=== PATIENT | female | born 2000 | race Caucasian/White ===

== ENCOUNTER 2021-01-01 07:41 | Emergency (ER) | payer MEDICAID, OTHER ==
[~2021-01-01] VITALS: Ht 147.3 cm; Wt 86.3 kg
--- NOTE | 2021-01-01 08:08 | PHYS DOC ---
Past Medical History Past Medical History: No Pertinent History Past Surgical History: Smoking Status: Never Smoker Alcohol Use: None Drug Use: None General Adult EDM: Chief Complaint: ABDOMINAL PAIN IN HPI: HPI: Patient is a 20 year old female who presented to ER due to epigastric abdominal pain for 1 week. Patient denies any chest pain, no nausea vomiting. Patient says she is 2 months , she is scheduled to see her OB doctor next week. Patient denies any lower abdominal pain, denies any pelvic pain, no vaginal bleeding or discharge. Patient has been 4 times, had TWO MISCARRIES and one live child. Her blood type is O+. Patient said whenever she tries to eat she feels sick in her stomach. Patient denies any cough or fever Review of Systems: Review of Systems: Constitutional: Denies fever or chills. [] Eyes: Denies change in visual acuity. [] HENT: Denies nasal congestion or sore throat. [] Respiratory: Denies cough or shortness of breath. [] Cardiovascular: Denies chest pain or edema. [] GI: Positive for abdominal pain, no nausea vomiting, no diarrhea. : Denies dysuria. [] Musculoskeletal: Denies back pain or joint pain. [] Integument: Denies rash. [] Neurologic: Denies headache, focal weakness or sensory changes. [] Endocrine: Denies polyuria or polydipsia. [] Lymphatic: Denies swollen glands. [] Psychiatric: Denies depression or anxiety. [] Heart Score: Risk Factors: Risk Factors: DM, Current or recent (<one month) smoker, HTN, HLP, family history of CAD, obesity. Risk Scores: Score 0 - 3: 2.5% MACE over next 6 weeks - Discharge Home Score 4 - 6: 20.3% MACE over next 6 weeks - Admit for Clinical Observation Score 7 - 10: 72.7% MACE over next 6 weeks - Early Invasive Strategies Current Medications: Current Medications Medications (Trade) Dose Ordered Sig/David Start Time Stop Time Status Last Admin Dose Admin Famotidine (Pepcid Vial) 20 mg 1X ONCE 01/01/21 08:15 01/01/21 08:16 UNV Metoclopramide HCl (Reglan Vial) 10 mg 1X ONCE 01/01/21 08:15 01/01/21 08:16 UNV Sodium Chloride 1,000 ml @ 1,000 mls/hr 1X ONCE 01/01/21 08:15 01/01/21 09:14 UNV Allergies: Allergies: Allergies Coded Allergies Type Severity Reaction Last Updated Verified No Known Drug Allergies 08/07/15 No Physical Exam: PE: Constitutional: Well developed, well nourished, no acute distress, non-toxic appearance. [] HENT: Normocephalic, atraumatic, bilateral external ears normal, oropharynx moist, no oral exudates, nose normal. [] Eyes: PERRLA, EOMI, conjunctiva normal, no discharge. [] Neck: Normal range of motion, no tenderness, supple, no stridor. [] Cardiovascular:Heart rate regular rhythm, no murmur [] Lungs & Thorax: Bilateral breath sounds clear to auscultation [] Abdomen: Bowel sounds normal, soft, epigastric tender to palpate, no masses, no pulsatile masses. [] Skin: Warm, dry, no erythema, no rash. [] Back: No tenderness, no CVA tenderness. [] Extremities: No tenderness, no cyanosis, no clubbing, ROM intact, no edema. [] Neurologic: Alert and oriented X 3, normal motor function, normal sensory function, no focal deficits noted. [] Psychologic: Affect normal, judgement normal, mood normal. [] Current Patient Data: Labs: Laboratory Tests Test 01/01/21 07:55 01/01/21 08:06 01/01/21 08:40 Urine Collection Type Unknown Urine Color Kylie Urine Clarity Clear Urine pH 6.0 Urine Specific [place] >=1.030 Urine Protein Negative mg/dL Urine Glucose (UA) Negative mg/dL Urine Ketones (Stick) Trace mg/dL Urine Blood Negative Urine Nitrite Negative Urine Bilirubin Small Urine Urobilinogen Dipstick 1.0 mg/dL Urine Leukocyte Esterase Trace Urine RBC Occ /HPF Urine WBC 5-10 /HPF Urine Squamous Epithelial Cells Many /LPF Urine Bacteria Moderate /HPF Urine Mucus Marked /LPF Bedside Urine HCG, Qualitative Hcg positive White Blood Count 11.0 x10^3/uL Red Blood Count 4.80 x10^6/uL Hemoglobin 13.2 g/dL Hematocrit 40.2 % Mean Corpuscular Volume 84 fL Mean Corpuscular Hemoglobin 28 pg Mean Corpuscular Hemoglobin Concent 33 g/dL Red Cell Distribution Width 14.0 % Platelet Count 246 x10^3/uL Neutrophils (%) (Auto) 66 % Lymphocytes (%) (Auto) 22 % Monocytes (%) (Auto) 9 % Eosinophils (%) (Auto) 2 % Basophils (%) (Auto) 1 % Neutrophils # (Auto) 7.3 x10^3/uL Lymphocytes # (Auto) 2.4 x10^3/uL Monocytes # (Auto) 1.0 x10^3/uL Eosinophils # (Auto) 0.3 x10^3/uL Basophils # (Auto) 0.1 x10^3/uL Sodium Level 137 mmol/L Potassium Level 3.5 mmol/L Chloride Level 101 mmol/L Carbon Dioxide Level 25 mmol/L Anion Gap 11 Blood Urea Nitrogen 9 mg/dL Creatinine 0.8 mg/dL Estimated GFR (Cockcroft-Gault) 89.7 BUN/Creatinine Ratio 11 Glucose Level 103 mg/dL Calcium Level 9.6 mg/dL Magnesium Level 1.9 mg/dL Total Bilirubin 0.6 mg/dL Aspartate Amino Transf (AST/SGOT) 20 U/L Alanine Aminotransferase (ALT/SGPT) 37 U/L Alkaline Phosphatase 74 U/L Total Protein 7.3 g/dL Albumin 3.2 g/dL Albumin/Globulin Ratio 0.8 Lipase 91 U/L Current Medications Medications (Trade) Dose Ordered Sig/David Route PRN Reason Start Time Stop Time Status Last Admin Dose Admin Sodium Chloride 1,000 ml @ 1,000 mls/hr 1X ONCE IV 01/01/21 08:15 01/01/21 09:14 DC 01/01/21 08:15 Metoclopramide HCl (Reglan Vial) 10 mg 1X ONCE IVP 01/01/21 08:15 01/01/21 08:16 DC 01/01/21 08:43 Famotidine (Pepcid Vial) 20 mg 1X ONCE IVP 01/01/21 08:15 01/01/21 08:16 DC 01/01/21 08:42 Vital Signs: Vital Signs Date Time Temp Pulse Resp B/P (MAP) Pulse Ox O2 Delivery O2 Flow Rate FiO2 01/01/21 07:54 97.3 76 16 128/66 (86) 99 Room Air 97.3 EKG: EKG: [] Radiology/Procedures: Radiology/Procedures: [][facility] [address] [place] [address] IMAGING REPORT Signed PATIENT: CINDY BARRAGAN ACCOUNT: [id number] : 2000 LOCATION: ER AGE: 20 SEX: F EXAM STATUS: REG ER ORD. PHYSICIAN: ZAFAR LEW DO REASON: RUQ abdominal pain, epigastric pain PROCEDURE: ABDOMEN LTD Ultrasound the abdomen limited. HISTORY: Right upper quadrant pain, epigastric pain Ultrasound was used to evaluate the right upper quadrant of the abdomen. Mid body the pancreas was normal, portions of the head and tail of the pancreas were obscured. Vena cava at the liver was unremarkable. Proximal abdominal aorta was not enlarged. Liver is within normal limits in size and appearance although incompletely evaluated. There is flow the portal vein with color imaging. Gallbladder was normal without gallstones or gallbladder wall thickening. Common duct was normal measuring 3 mm. Right kidney is 10.4 cm in length without a mass or hydronephrosis. IMPRESSION: 1. Liver within normal limits in appearance. 2. No gallstones noted. Electronically signed by: Shane Duff MD (01/01/2021 9:25 AM) [id number] DICTATED and SIGNED BY: SHANE DUFF MD DATE: 01/01/21 [id number] 0 Course & Med Decision Making: Course & Med Decision Making Pertinent Labs and Imaging studies reviewed. (See chart for details) [] Dragon Disclaimer: Dragon Disclaimer: This electronic medical record was generated, in whole or in part, using a voice recognition dictation system. Departure Departure Impression: Primary Impression: Gastritis Additional Impression: Abdominal pain during in first trimester Disposition: 01 DC HOME SELF CARE/HOMELESS Condition: IMPROVED Referrals: NO PCP (PCP) MADISON SHIELDS Jr, MD next week Patient Instructions: Abdominal Pain During , Gastritis, Adult Scripts Metoclopramide Hcl (REGLAN) 10 Mg Tablet 1 TAB PO QID PRN for NAUSEA for 15 Days, #60 TAB 0 Refills before food and bedtime Prov: ZAFAR LEW DO 01/01/21 Famotidine (PEPCID) 20 Mg Tablet 20 MG PO HS for 30 Days, #30 TAB Prov: ZAFAR LEW DO 01/01/21 ZAFAR LEW DO Jan 01, 2021 08:08
[2021-01-01 08:12] LABS: BILIRUBIN,URINE SMALL (NEG); CLARITY,URINE CLEAR; COLOR,URINE AMBER; NITRITE,URINE NEGATIVE (NEG); PROTEIN,URINE NEGATIVE (NEG-TRACE)
[2021-01-01] MEDS ORDERED: METOCLOPRAMIDE HCL 10 MG/2 ML VIAL. IVP ONE (08:15)
[2021-01-01] MEDS ORDERED: IV NORMAL SALINE 1000ML BAG 1,000 ML IV ONE (08:15)
[2021-01-01] MEDS ORDERED: FAMOTIDINE 20 MG/2 ML VIAL IVP ONE (08:15)
[2021-01-01 08:59] LABS: BASO # 0.1 x10^3/uL (0.0-0.2); BASO % 1 % (0-3); EOS # 0.3 x10^3/uL (0.0-0.7); EOS % 2 % (0-3); HEMATOCRIT 40.2 % (36.0-47.0); HEMOGLOBIN 13.2 g/dL (12.0-15.5); LYMPH # 2.4 x10^3/uL (1.0-4.8); LYMPH % 22 % (24-48); MEAN CORPUSCULAR HEMOGLOBIN 28 pg (25-35); MEAN CORPUSCULAR HGB CONC 33 g/dL (31-37); MEAN CORPUSCULAR VOLUME 84 fL (79-100); MONO % 9 % (0-9); NEUT # 7.3 x10^3/uL (1.8-7.7); NEUT % 66 % (31-73); PLATELET COUNT 246 x10^3/uL (140-400)
[2021-01-01 09:05] VITALS: BP 121/61
[2021-01-01 09:12] LABS: CALCIUM 9.6 mg/dL (8.5-10.1); CREATININE 0.8 mg/dL (0.6-1.0); GFR 89.7; POTASSIUM 3.5 mmol/L (3.5-5.1)
[2021-01-01 09:13] LABS: RBC,URINE OCC /HPF (0-2)
[2021-01-01 09:14] LABS: BACTERIA,URINE MODERATE /HPF (0-FEW)
[2021-01-01 09:17] LABS: ALBUMIN 3.2 g/dL (3.4-5.0); ALBUMIN/GLOBULIN RATIO 0.8 (1.0-1.7); MAGNESIUM 1.9 mg/dL (1.8-2.4); TOTAL BILIRUBIN 0.6 mg/dL (0.2-1.0); TOTAL PROTEIN 7.3 g/dL (6.4-8.2)
[2021-01-01] MEDS ORDERED: METO10TA81 PO (09:21)
[2021-01-01] MEDS ORDERED: FAMO-63 PO (09:21)
--- NOTE | 2021-01-01 09:27 | RAD ---
Ultrasound the abdomen limited. HISTORY: Right upper quadrant pain, epigastric pain Ultrasound was used to evaluate the right upper quadrant of the abdomen. Mid body the pancreas was no rmal, portions of the head and tail of the pancreas were obscured. Vena cava at the liver was unremar kable. Proximal abdominal aorta was not enlarged. Liver is within normal limits in size and appearanc e although incompletely evaluated. There is flow the portal vein with color imaging. Gallbladder was normal without gallstones or gallbladder wall thickening. Common duct was normal measuring 3 mm. Righ t kidney is 10.4 cm in length without a mass or hydronephrosis. IMPRESSION: 1. Liver within normal limits in appearance. 2. No gallstones noted. Electronically signed by: Shane Duff MD (01/01/2021 9:25 AM) [id number]
== END 2021-01-01 09:32 | disposition home or self-care (01) ==
LOC: ER 07:41
DX: O99.611 Diseases of the digestive system complicating pregnancy, first trimester (principal); K29.70 Gastritis, unspecified, without bleeding; Z3A.08 8 weeks gestation of pregnancy
CPT/HCPCS: 36415; 76705; 80053; 81001; 81025; 83690; 83735; 85025; 87086; 96361; 96374; 96375; 99284; J2765; J3490; J7030